=== PATIENT | female | born 2005 | race Two or more races ===

== ENCOUNTER 2024-11-23 21:12 | Emergency (ER) | payer OTHER, SELFPAY ==
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
[2024-11-23 21:19] VITALS: BP 109/54; PULSE 91; RESP 16; TEMP 36.3; O2SAT 97; BMI 25.2
== END 2024-11-24 00:42 | disposition left against medical advice (07) ==
PROVIDERS: Emergency Provider Emergency Medicine
DX: M25.512 Pain in left shoulder (principal)
CPT/HCPCS: 73030; 99281; 99284

== ENCOUNTER → 2024-11-23 21:40 | Outpatient (BNV) | payer BC, SELFPAY | PROVIDERS: Visit Provider Radiology Diagnostic Radiology | DX: M25.512 Pain in left shoulder (principal) | CPT/HCPCS: 73030 ==